=== PATIENT | female | born 1995 | race Two or more races ===

== ENCOUNTER → 2024-11-16 | Outpatient (CLI) | payer MEDICAID, SELFPAY ==
--- NOTE | 2024-11-16 10:15 | XR_ITS ---
Examination: Breast ultrasound, unilateral, right complete Date and time of exam: November 16, 2024 10:40 AM INDICATIONS: Palpable lump in the right breast noted 11:00 position September 2024 Technique: Real-time looney scale ultrasonographic imaging performed right breast including all 4 quadrants as well as nipple retroareolar and axillary region. Findings: 1:00 cyst 5 x 3 mm 11:00 cyst 5 x 4 mm 6:00 cyst 3 x 4 mm No solid nodules IMPRESSION: BI-RADS Category 2: Benign findings
== END | disposition home or self-care (01) ==
PROVIDERS: PCP Family Medicine; Referring Provider Family Medicine; Visit Provider Family Medicine
DX: N64.4 Mastodynia (principal)
CPT/HCPCS: 76641

== ENCOUNTER → 2025-07-26 | Outpatient (CLI) | payer MEDICAID, SELFPAY ==
--- NOTE | 2025-07-26 13:30 | XR_ITS ---
Examination: Breast ultrasound complete, bilateral Date and time of exam: July 26, 2025, 1318 hours INDICATIONS: Breast pain, cystic disease on right breast sonogram November 16, 2024, family history of breast cancer Technique: Real-time grayscale ultrasonographic imaging bilateral breasts, including all 4 quadrants as well as nipple retroareolar and axillary regions. Findings: Sonographic images right breast 6:00 cyst 3 x 2 mm 11:00 cyst 5 x 4 mm No solid nodules Sonographic images left breast 8:00 cyst 3 x 3 mm No solid nodules IMPRESSION: BI-RADS Category 2: Benign findings
== END | disposition home or self-care (01) ==
LOC: CDIM 12:32
PROVIDERS: PCP Nurse Practitioner Family; Referring Provider Nurse Practitioner Family; Visit Provider Nurse Practitioner Family
DX: N64.4 Mastodynia (principal); Z80.3 Family history of malignant neoplasm of breast
CPT/HCPCS: 76641

== ENCOUNTER 2025-08-09 14:05 | Outpatient (RCR) | payer MEDICAID, SELFPAY | END 2025-08-17 23:59 | disposition home or self-care (01) | LOC: SCTC 14:05 | PROVIDERS: PCP Family Medicine; Referring Provider Family Medicine; Visit Provider Nurse Practitioner Family | DX: Z76.89 Persons encountering health services in other specified circumstances (principal); Z80.3 Family history of malignant neoplasm of breast; Z80.0 Family history of malignant neoplasm of digestive organs; N60.01 Solitary cyst of right breast | CPT/HCPCS: 99212; G0463 ==